=== PATIENT | female | born 1990 | race African-American/Black ===

== ENCOUNTER 2017-03-02 22:29 | Emergency (ER) | payer SELFPAY | END 2017-03-02 23:10 | disposition left against medical advice (07) | LOC: ERS 22:29 | DX: Z53.21 Procedure and treatment not carried out due to patient leaving prior to being seen by health care provider (principal) ==

== ENCOUNTER 2017-05-25 16:30 | Emergency (ER) | payer SELFPAY ==
[2017-05-25 18:46] LABS: #Basophils 0.1 thou/uL (0.0-0.2); #Eosinphils 0.1 thou/uL (0.0-0.7); #Lymphocytes 2.3 thou/uL (1.20-3.40); #Monocytes 1.9 thou/uL (0.11-0.59); #Neutrophils 15.1 thou/uL (1.40-6.50); %Basophils 0.3 % (0.0-1.0); %Eosinophils 0.4 % (0.0-10.0); %Lymphocytes 11.7 % (21.0-51.0); %Monocytes 9.8 % (0.0-10.0); %Neutrophils 77.9 % (42.0-75.0); Hemoglobin 12.8 g/dL (12.0-16.0); Mean Corpuscular HGB CONC 32.9 g/dL (32.0-36.0); Mean Corpuscular Volume 94.2 fl (81.0-99.0); Mean Platelet Volume 6.4 fL (7.4-10.4); Platelet Count 336 thou/uL (130-400); RBC Distribution Width 11.9 % (11.5-14.5); Red Blood Cell (RBC) Count 4.13 mill/uL (4.20-5.40); White Blood Cell (WBC) Count 19.4 thou/uL (4.8-10.8)
[2017-05-25] MEDS ORDERED: Morphine 4 MG/ML Carpuject ONE (18:59)
[2017-05-25] MEDS ORDERED: Ondansetron HCl/PF 4 MG/2 ML Vial ONE (18:59)
[2017-05-25] MEDS ORDERED: Dexamethasone 4 mg/ml Vial ONE (19:17)
[2017-05-25] MEDS ORDERED: Ampicillin/Sulbactam 3 GM in Sodium Chloride 0.9% 100 ML IVPB ONE (20:15)
== END 2017-05-25 21:00 | disposition home or self-care (01) ==
LOC: ERS 16:30
DX: J36 Peritonsillar abscess (principal); F17.200 Nicotine dependence, unspecified, uncomplicated; Z71.6 Tobacco abuse counseling
CPT/HCPCS: 36415; 85025; 87081; 87430; 96361; 96374; 96375; 99406; J0295; J1100; J2270; J2405; J7050

== ENCOUNTER 2017-11-29 17:54 | Emergency (ER) | payer MEDICAID, SELFPAY ==
--- NOTE | 2017-11-29 19:12 | RAD ---
PA AND LATERAL CHEST X-RAY 11/29/17 HISTORY: Mid and upper back pain worse with deep breaths. Symptoms started last night. COMPARISON: CTA chest on 02/19/16. FINDINGS: The cardiac silhouette and pulmonary vasculature are within normal limits. The lungs are clear. [place] us structures are intact. There has been no interval change from a prior CT exam. IMPRESSION: No acute cardiopulmonary process. POS: [facility]
== END 2017-11-29 19:38 | disposition home or self-care (01) ==
LOC: ERS 17:54
DX: S29.012A Strain of muscle and tendon of back wall of thorax, initial encounter (principal); F17.200 Nicotine dependence, unspecified, uncomplicated; X58.XXXA Exposure to other specified factors, initial encounter
CPT/HCPCS: 71046

== ENCOUNTER 2018-02-16 02:37 | Emergency (ER) | payer MEDICAID ==
[2018-02-16] MEDS ORDERED: Fentanyl 100 MCG/2 ML VIAL ONE (03:31)
[2018-02-16] MEDS ORDERED: Metoclopramide HCl 10 MG/2 ML VIAL ONE (03:32)
[2018-02-16] MEDS ORDERED: Ketorolac Tromethamine 30 MG/ML VIAL ONE (03:32)
[2018-02-16] MEDS ORDERED: Dexamethasone 10 MG/ML VIAL ONE (03:32)
== END 2018-02-16 04:26 | disposition home or self-care (01) ==
LOC: ERS 02:37
DX: G43.909 Migraine, unspecified, not intractable, without status migrainosus (principal); F17.210 Nicotine dependence, cigarettes, uncomplicated
CPT/HCPCS: 96365; 96375; J1100; J1885; J2765; J3010

== ENCOUNTER 2018-08-29 05:12 | Emergency (ER) | payer MEDICAID, OTHER ==
[2018-08-29] MEDS ORDERED: Ketorolac Tromethamine 60 MG/2 ML VIAL ONE (05:30)
== END 2018-08-29 06:32 | disposition home or self-care (01) ==
LOC: ERS 05:12
DX: M62.838 Other muscle spasm (principal); F17.210 Nicotine dependence, cigarettes, uncomplicated
CPT/HCPCS: 96372; J1885

== ENCOUNTER 2020-02-25 20:19 | Emergency (ER) | payer BC, SELFPAY ==
[2020-02-25 21:57] LABS: Pregnancy Test - Urine (BHCG) Negative (Negative)
[2020-02-25 21:58] LABS: Pregu Control Background? CLEAR/WHITE (CLR/WHITE); Pregu Control Bar Appear? YES (CONTROL BAR); Specific Gravity 1.015 (1.002-1.036)
[2020-02-25] MEDS ORDERED: Ketorolac Tromethamine 30 MG/ML VIAL ONE (22:11)
[2020-02-25] MEDS ORDERED: diphenhydrAMINE 50 MG/ML VIAL ONE (22:11)
[2020-02-25] MEDS ORDERED: Metoclopramide HCl 10 MG/2 ML VIAL ONE (22:11)
== END 2020-02-25 23:12 | disposition home or self-care (01) ==
LOC: ERS 20:19
DX: R51.9 Headache, unspecified (principal); F17.210 Nicotine dependence, cigarettes, uncomplicated
CPT/HCPCS: 81025; 96365; 96375; J1200; J1885; J2765